=== PATIENT | male | born 1965 | race American Indian/Alaskan Native ===

== ENCOUNTER 2016-12-11 05:57 | Observation (INO) | payer BC ==
[2016-12-11] MEDS ORDERED: ECOTRIN PO ONE (06:32)
[2016-12-11] MEDS ORDERED: NACL 0.9% 500 ML 500 ML IV SCH (07:00)
[2016-12-11 07:04] LABS: Basophils % (Auto) 1.5 % (0.0-1.8); Eosinophils % (Auto) 2.4 % (0.0-4.3); Hematocrit 32.3 % (35.5-45.6); Hemoglobin 10.7 gm/dl (11.8-15.2); Mean Corpuscular HGB Conc 33 % (32-34); Mean Corpuscular Volume 73 fl (84-94); Platelet Count 313 K/mm3 (140-440); Red Blood Count 4.41 M/mm3 (3.65-5.03); Red Cell Distribution Width 17.9 % (13.2-15.2); White Blood Count 7.8 K/mm3 (4.5-11.0)
[2016-12-11 07:09] LABS: Mean Corpuscular Hemoglobin 24 pg (28-32)
[2016-12-11 07:14] LABS: Anion Gap 18 mmol/L; Blood Urea Nitrogen 17 mg/dL (9-20); Calcium 8.9 mg/dL (8.4-10.2); Carbon Dioxide 26 mmol/L (22-30); Chloride 102.1 mmol/L (98-107); Glucose 166 mg/dL (75-100); INR 1.07 (0.87-1.13); Potassium 4.3 mmol/L (3.6-5.0); Sodium 142 mmol/L (137-145)
[2016-12-11] MEDS ORDERED: HEPARIN/NS 5000 UNIT/500ML(CATH LAB) 1,000 ML IR ONE (08:19)
[2016-12-11] MEDS ORDERED: XYLOCAINE 2% INFILTRATI ONE (08:20)
[2016-12-11] MEDS ORDERED: NITROGLYCERIN SYRINGE 3 ML ONE (08:21)
[2016-12-11] MEDS ORDERED: CALAN ONE (08:21)
[2016-12-11] MEDS: SUBLIMAZE ONE ×2 (09:10→09:44)
[2016-12-11] MEDS: VERSED ONE ×2 (09:10→09:43)
[2016-12-11] MEDS: HEPARIN 10,000 UNITS/10 ML ONE ×4 (09:18→10:28)
[2016-12-11] MEDS ORDERED: HEPARIN/NS 5000 UNIT/500ML(CATH LAB) 500 ML IR ONE (09:49)
[2016-12-11] MEDS ORDERED: PLAVIX ONE (10:15)
[2016-12-11] MEDS ORDERED: ALUM-MAG HYDROX-SIMETH 200-200-20MG/5ML ONE (10:15)
[2016-12-11] MEDS ORDERED: DILAUDID ONE (10:42)
[2016-12-11] MEDS ORDERED: ZOFRAN ONE (10:52)
[2016-12-11] MEDS ORDERED: ULTRAM PO PRN (10:57)
[2016-12-11] MEDS ORDERED: AMBIEN PO PRN (10:57)
[2016-12-11] MEDS ORDERED: ZOFRAN IV PRN (10:57)
--- NOTE | 2016-12-11 11:07 | Event Note ---
Date: 12/11/16 Outpatient6 cardiac cath, with adhoc PCI of the mid LAD-4.0mm DE stent. Admit for 23 hr observation, discharge tomorrow am.
[2016-12-11] MEDS ORDERED: NACL 0.9% 1000 ML 1,000 ML ONE (11:51)
--- NOTE | 2016-12-11 11:54 | Cardiac Catherization Report ---
PROCEDURE: Cardiac catheterization and coronary angioplasty. REASON FOR PROCEDURE: The patient is a 51-year-old man with history of coronary artery disease status post distal right coronary artery stent done 4 years ago. 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 PROCEDURE IN DETAIL: The patient was prepped and draped in a sterile fashion after informed consent. initially, we used the right radial approach. A 6-Wallisian hydrophilic sheath was placed in the right radial artery. A #3.5 left Elijah catheter was used for left coronary angiography. There was difficulty with right radial catheterization due to severe tortuosity in the brachiocephalic trunk. After the left coronary angiography, right coronary angiography could not be optimally performed due to difficulty with catheter manipulation as a result of the tortuosity of the brachiocephalic. We then abandoned the radial approach, and entered the right femoral artery, placed a 6-Wallisian sheath and completed the right coronary catheterization via the right femoral artery. CORONARY ANGIOGRAPHY: The angiograms were reviewed. The left main coronary artery contained mild irregularities. There was mild distal narrowing of the left main, with a 10% to 20% luminal stenosis before its bifurcation into the LAD and circumflex systems. The LAD contained mild irregularities in its proximal segment. Following this, there was a long, 75% to 80% stenosis of the mid LAD. The circumflex artery and its obtuse marginal branches contained diffuse mild atherosclerosis. The right coronary artery was dominant. This vessel contained mild disease in its proximal and mid segments. There was up to 50% luminal stenosis of the mid right coronary artery. Following this, we noted a previous stent in the distal AV groove vessel before the origin of the posterior descending branch. The stented segment was widely patent, no significant restenosis. Following the stent, there was mild nonobstructive diffuse disease of the distal right coronary branches. Coronary angioplasty: Ad hoc coronary angioplasty of the de chepe stenosis of the proximal to mid LAD was recommended. We selected #3.5 XB guiding catheter and advanced to the left coronary ostium. A 0.014 inch [employer] 50 guidewire was successfully used to cross the diseased segment of the proximal to mid right LAD. We then predilated the stenosis using a 3.5 mm balloon catheter. We then deployed a 4.0 x 26 mm Resolute drug-eluting stent, covering the entire lesional segment. Following stenting, post-dilatation angioplasty of the mid stent was performed using a 4.5 x 15 mm noncompliant balloon. Following stenting and post-dilatation as described, there was an excellent angiographic result, 0 residual stenosis, and JOAQUINA 3 flow was maintained down the vessel. Procedure was well tolerated by the patient and there were no complications. CONCLUSION: 1. Multivessel coronary artery disease . 2. Widely patent, prior distal right coronary artery stent. 3. Severe de chepe disease of the proximal to mid left anterior descending artery. 4. Successful ad hoc angioplasty and stenting of the mid left anterior descending, excellent angiographic results following deployment of a 4.0 mm drug-eluting stent. RECOMMENDATION: Aggressive risk factor modification and medical therapy. The patient will be admitted for overnight post-coronary stent observation. The echocardiography will be done for left ventricular function and valvular function assessment. [facility]# [id number] TANA EVERETT
[2016-12-11] MEDS ORDERED: DILAUDID IV ONE (12:00)
[2016-12-11] MEDS ORDERED: NACL 0.9% 1000 ML 1,000 ML IV SCH (13:00)
[2016-12-11] MEDS: LOPRESSOR PO SCH ×2 (16:02→22:46)
[2016-12-11] MEDS: GLUCOTROL XL PO SCH (16:02)
[2016-12-11] MEDS: ZESTRIL PO SCH (16:02)
[2016-12-11] MEDS ORDERED: CATAPRES PO SCH (22:00)
[2016-12-12 05:40] LABS: Basophils % (Auto) 1.1 % (0.0-1.8); Eosinophils % (Auto) 1.6 % (0.0-4.3); Hematocrit 29.1 % (35.5-45.6); Hemoglobin 9.5 gm/dl (11.8-15.2); Mean Corpuscular HGB Conc 33 % (32-34); Mean Corpuscular Volume 74 fl (84-94); Platelet Count 259 K/mm3 (140-440); Red Blood Count 3.95 M/mm3 (3.65-5.03); Red Cell Distribution Width 17.6 % (13.2-15.2); White Blood Count 8.2 K/mm3 (4.5-11.0)
[2016-12-12 05:43] LABS: Mean Corpuscular Hemoglobin 24 pg (28-32)
[2016-12-12 06:04] LABS: Creatine Kinase MB 14.3 ng/mL (0.0-4.0)
[2016-12-12 06:07] LABS: Anion Gap 15 mmol/L; BUN/Creatinine Ratio 11.81; Blood Urea Nitrogen 13 mg/dL (9-20); Calcium 8.2 mg/dL (8.4-10.2); Carbon Dioxide 28 mmol/L (22-30); Chloride 101.8 mmol/L (98-107); Creatine Kinase 189 units/L (55-170); Glucose 178 mg/dL (75-100); Potassium 4.1 mmol/L (3.6-5.0); Sodium 141 mmol/L (137-145)
[2016-12-12 06:45] LABS: Cholesterol 98 mg/dL (50-199); HDL Cholesterol 38 mg/dL (40-59); LDL Cholesterol,Direct 32 mg/dL (50-130); Triglycerides 143 mg/dL (2-149)
[2016-12-12] MEDS: GLUCOTROL XL PO SCH (08:00)
--- NOTE | 2016-12-12 08:55 | XRay Report ---
AP CHEST: HISTORY: Chest pain, recent cardiac catheterization AP view of the chest demonstrates a normal mediastinal and cardiac contour with clear lungs and normal bony and soft tissue structures. IMPRESSION: Unremarkable AP chest.
--- NOTE | 2016-12-12 09:00 | Admit Criteria Form ---
Admission Criteria Documentation: TELEMETRY CARE Telemetry Admission Guidelines (Place 'X' for any and all applicable criteria): Admission to telemetry [A] may be indicated for ANY ONE of the following(1)(2)(3 )(4)(5): [X ]I. Cardiac disease, including ANY ONE of the following (9)(10)(11)(12)( 13): [ ]a) Postacute ID [ ]b) Low-risk patients with ST-segment elevation ID who have undergone successful percutaneous coronary intervention [ ]c) Unstable angina [ ]d) Suspected ID (until it is ruled out) [ ]e) Post cardiac surgery (first 48 to 72 hours unless complications occur) [ ]f) Acute arrhythmias (including significant tachycardia or bradycardia) [B] [ ]g) Firing of an implantable cardioverter defibrillator [C] [ ]h) Suspected pacemaker or implantable cardioverter defibrillator malfunction (10) [ ]i) New administration or adjustment of an antiarrhythmic drug [D ] [ ]j) Child admitted for acute congestive heart failure [ ]j) Long QT syndrome [ ]k) Advanced heart block (eg, second-degree Mobitz type II, third- degree heart block) [ ]l) Acute myocarditis or pericarditis [X ]m) Short-term (ambulatory or inpatient) monitoring after a cardiac procedure as indicated by ANY ONE of the following [E]: [ ]i) Electrophysiologic studies [X ]ii) Percutaneous coronary intervention with stent placement [ ]iii) Pacemaker placement with cardiac conduction defect [ ]iv) Implantable cardiac defibrillator placement [ ]II. Drug overdose or poisoning with substance that causes arrhythmias or QT prolongation (eg, phenothiazines, sympathomimetic agents, cyclic antidepressants, digitalis, antiarrhythmic drugs)(15) [ ]III. Short-term (ambulatory or inpatient) monitoring after therapeutic or diagnostic procedure requiring conscious sedation or anesthesia (eg, endoscopy, elective cardioversion) [ ]IV. Acute cerebrovascular even[F](18) [ ]V. Massive blood transfusion (eg, at least 10 units of packed red blood cells in 24 hours) [ ]. Variceal bleeding after endoscopy, sclerotherapy, or IV vasopressin [ ]VII. Uncorrected electrolyte abnormalities associated with an increased risk of dangerous arrhythmia [G]; examples include [ ]a) Hyperkalemia with attributable ECG changes [ ]b) Potassium greater than 6.5 mmol/L (mEq/L) in a patient without history of chronic renal disease [ ]c) Prolonged QT attributed to hypokalemia, hypomagnesemia, or hypocalcemia [ ]VIII.Unexplained syncope or other neurologic event suspected of being due to arrhythmia due to a finding that increases risk; examples include(19)(20)(21): [ ]a) High-risk ECG findings (eg, bifascicular block, bradycardia, abnormal QT interval, ventricular pre- excitation) [ ]b) History of previous syncope due to arrhythmia [ ]c) Abnormal ventricular function (eg, reduced ejection fraction ) [ ]d) Exertional or supine syncope [ ]e) Concerning syncope characteristics (eg, sudden loss of consciousness without prodrome) [ ]f) Family history of sudden [ ]g) Use of arrhythmogenic medication [ ]h) Suspected cardiac ischemia [ ]i) Known channelopathy (eg, long QT syndrome, Brugada syndrome, or catecholaminergic paroxysmal ventricular tachycardia) [ ]j) Known structural heart disease (eg, hypertrophic cardiomyopathy , severe valvular disease) [ ]k) Palpitations preceding syncope The original [employer] content created by [employer] has been revised. The portions of the content which have been revised are identified through the use of italic text or in bold, and [email or web address] has neither reviewed nor approved the modified material. All other unmodified content is copyright [employer]. Please see references footnoted in the original [employer] edition 2016 Admission Criteria Met: Yes
[2016-12-12 09:27] VITALS: BP 122/77
--- NOTE | 2016-12-12 09:47 | Short Stay Summary ---
Short Stay Documentation Date of service: 12/12/16 - History H&P: obtained from office - Allergies and Medications Current Medications: Allergies No Known Allergies Allergy (Verified 12/11/16 06:30) Home Medications Medication Instructions Recorded Confirmed Last Taken Type Aspirin [Aspirin BABY CHEW TAB] 81 mg PO QDAY #30 tab.chew 12/10/13 12/11/1607/18 Rx Clopidogrel [Plavix] 75 mg PO QDAY #30 tablet 12/10/13 12/11/16 12/11/16 04:30 Rx Lisinopril [Zestril TAB] 20 mg PO DAILY #30 tablet 12/10/13 12/11/16 12/11/16 04 :30 Rx Metoprolol [Lopressor TAB] 25 mg PO BID #60 tablet 12/10/13 12/11/16 12/11/16 04 :30 Rx glipiZIDE [glipiZIDE ER] 10 mg PO BID #60 tab.er.24 11/09/14 12/11/16 12/11/16 04:30 Rx metFORMIN [Glucophage] 850 mg PO BID #60 tablet 11/09/14 12/11/16 12/10/16 Rx Atorvastatin Calcium [Lipitor] 20 mg PO QDAY 12/11/16 12/11/16 12/11/16 04:30 History Clonidine HCl [Clonidine HCl] 1.2 mg PO HS 12/11/16 12/11/16 12/10/16 History ISOSORBIDE MONOnitrate 30 mg PO DAILY 12/11/16 12/11/16 12/11/16 04:30 History Active Medications Aspirin (Ecotrin) 325 mg PO QDAY [facility] Atorvastatin Calcium (Lipitor) 20 mg PO HS [facility] Clonidine HCl (Catapres) 1.2 mg PO HS [facility] Last Admin: 12/11/16 22:46 Dose: 0.2 mg Clopidogrel Bisulfate (Plavix) 75 mg PO QDAY [facility] Glipizide (Glucotrol Xl) 10 mg PO BIDDIAB [facility] Last Admin: 12/11/16 16:02 Dose: 10 mg Insulin Human Regular (Novolin R) 0 units SUB-Q ACHS [facility] PRN Reason: Protocol Last Admin: 12/11/16 22:51 Dose: 1 units Isosorbide Mononitrate (Imdur) 30 mg PO DAILY [facility] Lisinopril (Zestril) 20 mg PO DAILY [facility] Last Admin: 12/11/16 16:02 Dose: 20 mg Metoprolol Tartrate (Lopressor) 25 mg PO BID [facility] Last Admin: 12/11/16 22:46 Dose: 25 mg Ondansetron HCl (Zofran) 4 mg IV Q8H PRN PRN Reason: N/V unrelieved by Reglan Last Admin: 12/11/16 10:57 Dose: 4 mg Tramadol HCl (Ultram) 50 mg PO Q4H PRN PRN Reason: Pain, Mild (1-3) Last Admin: 12/11/16 16:24 Dose: 50 mg Zolpidem Tartrate (Ambien) 5 mg PO QHS PRN PRN Reason: Sleep Last Admin: 12/11/16 22:48 Dose: 5 mg - Physical exam General appearance: no acute distress HEENT: PERRLA Lungs: Clear to auscultation Heart: Regular rate, Normal S1, Normal S2 - Brief post op/procedure progress note Procedure: Outpatient cardiac cath, with adhoc PCI of the mid LAD-4.0mm DE stent. - Hospital course Hospital course: Stable overnight observation. - Disposition Condition at discharge: Good Disposition: DISCHARGED TO HOME OR SELFCARE Short Stay Discharge Plan Activity: advance as tolerated Diet: low fat, low cholesterol, low salt Special Instructions: hold Metformin (48hrs post cardiac cath), other (post cardiac cath instructions) Additional Instructions: HOLD METFORMIN 48hrs post cardiac cath then resume as instructed. Follow up with: NANDINI ASENCIO MD [Primary Care Provider] - 7 Days KENNETH BENSON MD [Staff Physician] - 7 Days Prescriptions: Aspirin EC [Aspirin Enteric Coated TAB] 325 mg PO QDAY #30 tablet Clopidogrel [Plavix] 75 mg PO QDAY #30 tablet
[2016-12-12] MEDS ORDERED: PLAVIX PO SCH (10:00)
[2016-12-12] MEDS ORDERED: ECOTRIN PO SCH (10:00)
[2016-12-12] MEDS ORDERED: IMDUR PO SCH (10:00)
[2016-12-12] MEDS ORDERED: NON-FORMULARY (Isosorbide Mononitrate 30 MG) PO SCH (10:00)
[2016-12-12] MEDS: LOPRESSOR PO SCH (11:21)
[2016-12-12] MEDS: ZESTRIL PO SCH (11:22)
== END 2016-12-12 12:08 | disposition home or self-care (01) ==
LOC: OPU 05:57 → 4A 10:58
PROVIDERS: ADMIT Internal Medicine Cardiovascular Disease; ATTEND Internal Medicine Cardiovascular Disease
DX: I25.10 Atherosclerotic heart disease of native coronary artery without angina pectoris (principal); E11.9 Type 2 diabetes mellitus without complications; Z86.79 Personal history of other diseases of the circulatory system; E78.5 Hyperlipidemia, unspecified; I11.9 Hypertensive heart disease without heart failure
CPT/HCPCS: 36415; 71010; 80048; 80061; 82550; 82553; 82962; 84484; 85025; 85347; 85610; 85730; 93005; 93010; 93458; 96372; 96374; 96375; C1725; C1760; C1769; C1874; C1887; C1894; C9600; G0378; J1170; J1644; J2250; J2405; J3010; J7030; J7040; 92928; Q9967